=== PATIENT | female | born 1990 | race African-American/Black ===

== ENCOUNTER 2018-01-07 12:33 | Emergency (ER) | payer SELFPAY ==
[2018-01-07] MEDS ORDERED: Dexamethasone 4 mg/ml Vial ONE ×2 (13:35)
== END 2018-01-07 13:40 | disposition home or self-care (01) ==
LOC: ERS 12:33
DX: L23.2 Allergic contact dermatitis due to cosmetics (principal)
CPT/HCPCS: 99282; J1100

== ENCOUNTER 2018-03-13 07:43 | Emergency (ER) | payer SELFPAY ==
[2018-03-13] MEDS ORDERED: diphenhydrAMINE 50 MG/ML VIAL ONE (08:58)
[2018-03-13] MEDS ORDERED: Metoclopramide HCl 10 MG/2 ML VIAL ONE (08:58)
[2018-03-13] MEDS ORDERED: Dexamethasone 10 MG/ML VIAL ONE (09:21)
--- NOTE | 2018-03-13 09:50 | CT ---
CT OF THE BRAIN WITHOUT CONTRAST: Date: 03/13/18 INDICATION: Headache with sensitivity to light and nausea. FINDINGS: No acute infarct, hemorrhage, or hydrocephalus is present. Septum pellucidum and third ventricle are midline. Skull and extracranial soft tissues appear within normal limits. IMPRESSION: No acute intracranial abnormality demonstrated. POS: [facility]
== END 2018-03-13 10:53 | disposition home or self-care (01) ==
LOC: ERS 07:43
DX: R51 Headache (principal)
CPT/HCPCS: 70450; 96365; 96375; J1100; J1200; J2765

== ENCOUNTER 2019-01-12 09:35 | Emergency (ER) | payer SELFPAY ==
--- NOTE | 2019-01-12 11:04 | RAD ---
PORTABLE CHEST 1 VIEW: Date: 01/12/19 Time: 1128 hours HISTORY: Cough. FINDINGS: The heart size is normal. The lungs are expanded without focal areas of consolidation, pneumothoraces , or pleural effusions. IMPRESSION: No radiographic evidence of acute cardiopulmonary process. POS: [facility]
== END 2019-01-12 12:55 | disposition home or self-care (01) ==
LOC: ERS 09:35
DX: J30.9 Allergic rhinitis, unspecified (principal)
CPT/HCPCS: 71045